=== PATIENT | male | born 1995 | race African-American/Black ===

== ENCOUNTER 2019-08-05 18:23 | Emergency (ER) | payer OTHER ==
[~2019-08-05] VITALS: Ht 172.7 cm; Wt 68.0 kg
--- NOTE | ~2019-08-05 | EKG ---
[facility] [address] [place] [address] ELECTROCARDIOGRAM REPORT Name: AYLINROBEL Room #: PRE M.R.#: [id number] Admission: Attend Phys: Discharge: Date of : [birth year] Report #: [id number] THIS REPORT FOR: cc: Barrington Ferris MD ~ THIS REPORT FOR: //name// [facility] ED Test Date: 2019-08-05 Test Time: 18:36:36 Pat Name: ROBEL VIERA Department: Room: Gender: Cupola Melter: ALEX : 1995 Requested By: Deon Carlson Order Number: [id number] MD: Measurements Intervals [place] Rate: 91 P: 71 MN: 154 QRS: 35 QRSD: 100 T: 43 QT: 359 QTc: 442 Interpretive Statements Sinus rhythm No previous ECG available for comparison [email or web address] By: 35 35 Barrington Ferris MD /EPI
[2019-08-05] MEDS ORDERED: NORVASC 2.5 MG2.5 M1 PO ×2 (19:20→19:23)
[2019-08-05 19:32] VITALS: BP 133/94
== END 2019-08-05 19:32 | disposition home or self-care (01) ==
LOC: ER 18:23
DX: I10 Essential (primary) hypertension (principal); R00.2 Palpitations; Z88.2 Allergy status to sulfonamides